=== PATIENT | female | born 1980 ===

== ENCOUNTER 2017-06-30 17:39 | Inpatient (IN) | payer MEDICAID ==
[2017-06-30 18:21] VITALS: BMI 30.2
[2017-06-30] MEDS ORDERED: Penicillin G 5 Million Unit Vial IVPB ONE (18:21)
[2017-06-30] MEDS ORDERED: Oxytocin 30 UNIT 30 UNITS/500 ML BAG IV PRN (18:21)
[2017-06-30] MEDS ORDERED: Lactated Ringer's 1,000 ML IV SCH ×2 (18:30→20:30)
[2017-06-30 18:33] LABS: BASO % 0.1 % (0.0-2.0); EOS # 0.1 K/uL (0.0-0.7); EOS % 0.9 % (0.0-4.0); HEMATOCRIT 35.1 % (34.0-47.0); LYMPH # 2.1 K/uL (1.0-4.3); LYMPH % 19.9 % (20.0-40.0); MEAN CELL VOLUME 85.8 fL (81.0-99.0); MEAN CORPUSCULAR HEMOGLOBIN 29.3 pg (27.0-31.0); MEAN CORPUSCULAR HGB CONC 34.2 g/dL (33.0-37.0); MEAN PLATELET VOLUME 8.8 fL (7.2-11.7); MONO # 0.7 K/uL (0.0-0.8); MONO % 6.5 % (0.0-10.0); RED CELL DISTRIBUTION WIDTH 14.4 % (11.5-14.5); WHITE BLOOD COUNT 10.6 K/uL (4.8-10.8)
[2017-06-30 18:40] LABS: RBC URINE 4 /hpf (0-3); URINE BACTERIA MANY (<OCC); URINE BILIRUBIN NEGATIVE (NEGATIVE); URINE BLOOD 1+ (NEGATIVE); URINE COLOR Yellow (YELLOW); URINE GLUCOSE (UA) NORMAL (Normal); URINE KETONE NEGATIVE (NEGATIVE); URINE LEUKOCYTE ESTERASE 3+ Leu/uL (Negative); URINE PROTEIN NEGATIVE (NEGATIVE); URINE UROBILINOGEN NORMAL mg/dL (0.2-1.0); WBC URINE 13 /hpf (0-5)
[2017-06-30 18:43] LABS: ALB/GLOB RATIO 0.9 (1.0-2.1); ALKALINE PHOSPHATASE 173 U/L (38-126); ALT/SGPT 24 U/L (9-52); AST/SGOT 17 U/L (14-36); BILIRUBIN,TOTAL 0.3 mg/dL (0.2-1.3); BLOOD UREA NITROGEN 6 mg/dL (7-17); CALCIUM 9.4 mg/dl (8.6-10.4); CARBON DIOXIDE 21 mmol/L (22-30); CHLORIDE 104 mmol/L (98-107); GFR AFRICAN-AMERICAN > 60; GLUCOSE,RANDOM 79 mg/dL (65-105); POTASSIUM 3.6 mmol/L (3.6-5.2); SODIUM 137 mmol/L (132-148); TOTAL PROTEIN 6.9 g/dL (6.3-8.3)
--- NOTE | 2017-06-30 18:52 | OBHP ---
Datetime: 06/30/2017 18:27 IP Adm Impression: Term, intrauterine ; Active labor; Intact Membranes IP Admit Plan: Admit to unit; Initiate labor protocol; Initiate labor augmentation protocol Admit Comment, IP Provider: 37 y.o. , LMP unsure, LISA 07/09/17, EGA 38w 5d by patient, c/o co ntractions, onset 0200 hours; now pain scale 8/10 and coming every 8 minutes. (+) AFM; denies ANDRAEFKrystle. Pernatal care: [facility], elba escalera GBS (+); no other issues. Next appointment 07/01/17. P OB: x 4. All approx 7lb; First three born in [place]; last one at [facility]. 1995 male ; 1999, 2007, 2012,all females. No complications. 2016, Spont ab at 2 months, with D_C, [facility], [facility]. 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 x 8 years; together x 12. Lives with iam sheehan and 2 younger daughters. Unemployed Fam Hx: Mother alive 57 y.o. HTN. Father 2012, age 58 - MVA. Mat aunt colon ca ncer. P.E.: as above. WD in mild discomfort with ocntractions. Awake, alert, oriented to time, person a nd place. at her bedside Assessment: 37 y.o. P4014, 38w 5d, active labor. GBS (+). Category 1 tracing. D/W patient, augm entation with pitocin. Patient will consider epidrual. Clinically stable. Plan: 1) Admit 2) NPO 3) IVFs 4) Continuous EFM 5) Admission labs, including labs 6) Pitocin 7) Penicillin 8) Anticipate vaginal delivery Pelvic Type - PN: Adequate Extremities - PN: Normal Abdomen - PN: Normal Back - PN: Normal Breast - PN: Not Done Lungs - PN: Normal Heart - PN: Normal Thyroid - PN: Not Done Neurologic - PN: Normal HEENT - PN: Normal General - PN: Normal Weight - Estimated: 3292 Presentation-Admit: Vertex FHR - Baseline A Provider: 140 Membranes, Provider: Intact Contraction Comments Provider: 6-8 Comments, ACOG Physical Exam: Abdomen: Gravid. Firm with contractions. fundal height 37 cm All other systems reviewed and are negative Gestation - Est Wks by US: 38w 5d Vital Signs Provider: Reviewed; Within Normal Limits IP Indication for Induction: Not Applicable IP Chief Complaint: Uterine contractions NICHD Variability Prov Fetus A: Moderate 6-25bpm NICHD Accel Fetus A IP Provider: 15X15 FHR Category Provider Fetus A: Category I NICHD Decel Fetus A IP Provider: None Dilatation, Provider: 4 Effacement, Provider: 70 Station, Provider: -2 Genitourinary Exam: Normal DTRs - PN: Not Done
--- NOTE | 2017-06-30 19:26 | OBPN ---
Datetime: 06/30/2017 19:21 IP Progress Impression: Normal progression of labor IP Progress Plan: Continue present management; Anticipate Vaginal Delivery Membranes, Provider: Intact Contraction Comments Provider: 1-2 FHR - Baseline A Provider: 140 Gestation - Est Wks by US: 38w 5d Presentation-Admit: Vertex IP Progress Note Comment: Patient c/o vaginal pressure; also, interested in epidural Cervical exam - as above. Assessment: 37 y.o. P4014, 38w 5d, approaching end of stage 1 of labor. GBS (+) - S/P penicillin x 1 dose. Category 1 tracing. Clinically stable. Plan: 1) Anticipate vaginal delivery NICHD Variability Prov Fetus A: Moderate 6-25bpm Dilatation, Provider: 8 Effacement, Provider: 90 Station, Provider: -1 NICHD Decel Fetus A IP Provider: None Datetime: 06/30/2017 18:27 Weight - Estimated: 3292 Vital Signs Provider: Reviewed; Within Normal Limits NICHD Accel Fetus A IP Provider: 15X15 FHR Category Provider Fetus A: Category I
[2017-06-30] MEDS ORDERED: Lidocaine 2% Inj (20ml) ONE (19:57)
[2017-06-30] MEDS ORDERED: Oxycodone/Acetaminophen 5/325 mg Tab PO PRN ×2 (20:19)
--- NOTE | 2017-06-30 20:26 | OBDS ---
DELIVERY PERSONNEL Nurse Avionics Mechanic Certified: N/A Delivery Doctor: Bang Virk MD Scrub Nurse: N/A Veneer Gluer: Whit Farrell RN Anesthesiologist: N/A [employer] Haul Youth Supervisor: N/A Resident: N/A MATERNAL INFORMATION Delivery Anesthesia: None Estimated Blood Loss (ml): 150 Placenta Cultured: No Maternal Complications: None Provider Comments: Uncomplicated vaginal delivery, live female . CURTIS, loose nuchal cord x 1 ea sily reduced over head. Umbilical cord doubly clamped and cut; infant placed on mother's abdomen. Inf ant's weight 6lb 3oz, 's 9/9. Spontaneous delivery of placenta - grossly intact, 3 vessel cord. Cervix, vagina, perineum inspected - laceration as above. Repaired Infant, mother and father bonding; mother and in stable condition. LABOR SUMMARY EDC: 07/09/2017 00:00 No. Babies in Womb: 1 Attempted: No Labor Anesthesia: None LABOR INFORMATION Reason for Induction: Not Applicable Onset of Labor: 06/30/2017 02:00 Complete Dilatation: 06/30/2017 19:42 Oxytocin: N/A Group B Beta Strep: Positive Antibiotics # of Doses: 1 Antibiotics Time of Last Dose: 18.30 PM Steroids Given: None Reason Steroids Not Administered: Not Applicable MEMBRANES Membranes Rupture Method: Artificial Rupture of Membranes: 06/30/2017 19:42 Length of Rupture (hrs): 0.13 Amniotic Fluid Color: Clear Amniotic Fluid Amount: Scant Amniotic Fluid Odor: Normal STAGES OF LABOR Stage 1 hrs: 17 Stage 1 min: 42 Stage 2 hrs: 0 Stage 2 min: 8 Stage 3 hrs: 0 Stage 3 min: 14 Total Time in Labor hrs: 18 Total Time in Labor min: 4 VAGINAL DELIVERY Episiotomy: None Laceration Extension: First Degree Laceration Type: Perineal Laceration Repair: Yes WITH 3/O CHROMIC Laceration Repair Note: 3-0 chromic, routine fasihon. Hemostasis assured. Patient tolerated procedure well Initial Vag Sponge Count: 10 Final Vag Sponge Count: 10 Initial Vag Sharps Count: 0 Final Vag Sharps Count: 1 Sponge Count Correct: Yes Sharps Count Correct: Yes Count Comment: Correct BABY A INFORMATION Infant Delivery Date/Time: 06/30/2017 19:50 Method of Delivery: Vaginal Born in Route : No : N/A Forceps: N/A Vacuum Extraction: N/A Shoulder Dystocia : No SHOULDER DYSTOCIA BABY A Infant Delivery Date/Time: 06/30/2017 19:50 PRESENTATION/POSITION BABY A Presentation: Cephalic Cephalic Presentation: Vertex Vertex Position: Left Occipital Anterior Breech Presentation: N/A PLACENTA INFORMATION BABY A Placenta Delivery Time : 06/30/2017 20:04 Placenta Method of Delivery: Spontaneous Placenta Status: Delivered SCORES BABY A Heart Rate 1 min: >100 bpm Resp Effort 1 min: Good Cry Reflex Irritability 1 min: Cough or Sneeze or Pulls Away Muscle Tone 1 min: Active Motion Color 1 min: Body [place], Extremities Blue Resuscitation Effort 1 min: Tactile Stimulation SCORE 1 MIN: 9 Heart Rate 5 min: >100 bpm Resp Effort 5 min: Good Cry Reflex Irritability 5 min: Cough or Sneeze or Pulls Away Muscle Tone 5 min: Active Motion Color 5 min: Body [place], Extremities Blue SCORE 5 MIN: 9 INFANT INFORMATION BABY A Gestational Age at Delivery: 38.6 Gestational Status: Term Outcome : Liveborn Infant Condition : Stable Sex: Female IDENTIFICATION/MEDS BABY A ID Band Number: [id number] ID Band Location: Left Leg; Left Arm Sensor Applied: Yes Sensor Number: [id number] Sensor Location : Cord Clamp WEIGHT/LENGTH BABY A Birthweight (gms): 2810 Infant Weight (lb): 6 Weight (oz): 3 Infant Length Inches: 18.00 Infant Length cms: 45.7 CORD INFORMATION BABY A No. Cord Vessels: 3 Nuchal Cord : Around Neck x1, Loose Cord Blood Taken: Yes Infant Suction: Mouth ASSESSMENT BABY A Infant Complications: None Physical Findings at Delivery: Within Normal Limits Respirations: Appears Normal Transferred To: Nursery
[2017-06-30] MEDS ORDERED: Penicillin G Potassium 2.5 MU in Dextrose 5% In Water 50 ML IV SCH (22:20)
[2017-07-01] MEDS: Benzocaine/Menthol 20%-0.5% Topical Spray (60 ml) TOP SCH
[2017-07-01 08:11] LABS: HEMATOCRIT 34.3 % (34.0-47.0); MEAN CELL VOLUME 87.2 fL (81.0-99.0); MEAN CORPUSCULAR HEMOGLOBIN 28.7 pg (27.0-31.0); MEAN CORPUSCULAR HGB CONC 32.8 g/dL (33.0-37.0); MEAN PLATELET VOLUME 9.1 fL (7.2-11.7); RED CELL DISTRIBUTION WIDTH 14.5 % (11.5-14.5); WHITE BLOOD COUNT 15.3 K/uL (4.8-10.8)
[2017-07-01] MEDS: Multiple Vitamins Tab PO SCH (10:55)
--- NOTE | 2017-07-01 11:16 | OBPPN ---
Datetime: 07/01/2017 07:16 PP Pain Prov: Within normal limits PP Nausea Prov: Denies PP Flatus Prov: No PP BM Prov: No PP Impression Prov: Normal progression PP Plan Prov: Continue present management PP Progress Note Prov: Patient seen and examined at bedside. Patient is doing well, pain is controll ed. Patient is ambulating and tolerating diet. Lochia is moderate. Urinating without difficulty. Stacy st and bottle feeding. Denies passing flatus or BM. Denies headaches, dizziness, cp, palpitations, so b, urinary symptoms. VS: 111/67 75 97.4 Gen: AAOx3 CV: RRR Lungs: CTA B/L Abd: soft, appropriately tender, fundus firm below umbilicus Ext: No clubbing, cyanosis, edema; no calf tenderness Labs: 10.6>12.0/35.1<235 F/U AM CBC A positive Rubella unk A/P: 37 yo at 38.5 wks s/p with first degree perineal PPD#1 1. stable, afebrile 2. pain control - motrin and tylenol prn 3. encourage ambulation and hydration 4. f/u am cbc, rubella, RPR 5. continue routine pp care 6. anticipate d/c home tomorrow 7. plan d/w attending dr madera agrees with plan Vital Signs Provider PP: Reviewed
[2017-07-01 16:46] LABS: RAPID PLASMA REAGIN NONREACTIVE (NONREACTIVE)
[2017-07-02] MEDS: Benzocaine/Menthol 20%-0.5% Topical Spray (60 ml) TOP SCH (06:08)
[2017-07-02] MEDS ORDERED: Measles, Mumps, and Rubella 0.5 ML VIAL SC ONE (07:23)
--- NOTE | 2017-07-02 08:24 | OBDCSUM ---
Datetime: 07/02/2017 07:25 Discharged to, Provider: Home Follow up at, Provider: Clinic Disch Instr Activity: Normal activity; May Shower Disch Instr Diet: Regular Discharge Instructions, Provider: Routine instructions given Discharge Diagnosis, Provider: Term Delivered Discharge Time: 07/02/2017 08:21 Follow up in weeks, Provider: 6 weeks Disch Referrals: None Disch Activity Restrictions: No sexual activity; Nothing in vagina - [place], tampons, douche Discharge Comment, Provider: Pelvic rest x 6 weeks Tylenol/motrin prn pain Discharge Diagnosis Prov Other: s/p vaginal delivery Contraception after Delivery: Undecided
--- NOTE | 2017-07-02 08:24 | OBPPN ---
Datetime: 07/02/2017 07:16 PP Pain Prov: Within normal limits PP Nausea Prov: Denies PP Flatus Prov: Yes PP BM Prov: No PP Impression Prov: Normal progression PP Plan Prov: Continue present management; Discharge PP Progress Note Prov: Patient seen and examined at bedside. Patient is doing well, pain is controll ed. Ambulating and tolerating diet. Lochia is mild. Urinating without difficulty. Patient is passing flatus, denies BM. Denies headaches, dizziness, cp, palpitations, sob, urinary symptoms. VS: BP 113/75 HR 78 Temp 97.0 Gen: AAOx3, NAD CV: RRR Lungs: CTA B/L Abd: soft, appropriately tender, fundus firm below umbilicus Ext: no clubbing, cyanosis, edema; no calf tenderness Labs: 10.6>12.0/35.1<235 15.3>11.3/34.3<195 A positive Rubella Equivocal A/P: 37 yo at 38.5 wks s/p with first degree perineal PPD#2 1. Stable, afebrile 2. Pain control- motrin and tylenol prn 3. Encourage ambulation and hydration 4. Rubella equivocal - MMR ordered 5. Continue routine care 6. Anticipate D/C home - pelvic rest x 6 weeks, motrin/tylenol prn, f/u with clinic in 6 weeks 7. Plan d/w attending Rohini Oretga DO, PGY-1 Patient examined.Agree with harris mason. assessment and plan IP PP Procedures: Rubella IP PP Procedures Comments: Rubella equivocal - MMR prior to discharge Vital Signs Provider PP: Reviewed; Within Normal Limits
[2017-07-02] MEDS: Multiple Vitamins Tab PO SCH (09:41)
[2017-07-03 01:38] VITALS: BP 105/73; PULSE 98; RESP 18; TEMP 96.8; O2SAT 98
== END 2017-07-02 20:30 | disposition home or self-care (01) | DRG 373 ==
LOC: C.EROB 17:39 → C.4D 18:03 → C.4M 22:05
PROVIDERS: ADMIT Obstetrics & Gynecology; ATTEND Obstetrics & Gynecology
PROC: 10E0XZZ Delivery of Products of Conception, External Approach (ICD-10-PCS; principal; 2017-06-30)
PROC: 0HQ9XZZ Repair Perineum Skin, External Approach (ICD-10-PCS; 2017-06-30)
DX: O69.81X0 Labor and delivery complicated by cord around neck, without compression, not applicable or unspecified (principal); O99.824 Streptococcus B carrier state complicating childbirth; O70.0 First degree perineal laceration during delivery; Z3A.38 38 weeks gestation of pregnancy; Z37.0 Single live birth

== ENCOUNTER 2018-01-20 17:55 | Emergency (ER) | payer SELFPAY ==
[2018-01-20 17:55] VITALS: BMI 30.2
[2018-01-20 18:07] VITALS: BP 125/79; PULSE 81; RESP 20; TEMP 98.1; O2SAT 98
--- NOTE | 2018-01-20 20:01 | C.PDOC ---
History Of Present Illness 37 y/ o female presents to the ED complaining of sore throat, fever, and headache, since yesterday. Symptoms associated with painful swallowing. No URI symptoms. No sick contacts. Time Seen by Provider: 01/20/18 19:18 Chief Complaint (Nursing): Flu-like Symptoms History Per: Patient History/Exam Limitations: no limitations Onset/Duration Of Symptoms: Days (x2) Current Symptoms Are (Timing): Still Present Past Medical History Reviewed: Historical Data, Nursing Documentation, Vital Signs Vital Signs: Last Vital Signs Temp 98.1 F 01/20/18 18:04 Pulse 81 01/20/18 18:04 Resp 20 01/20/18 18:04 BP 125/79 01/20/18 18:04 Pulse Ox 98 01/20/18 20:03 - Medical History PMH: No Chronic Diseases Denies: Depression, Diabetes, HTN Surgical History: No Surg Hx - [facility] Procedures DELIVERY OF PRODUCTS OF CONCEPTION, EXTERNAL APPROACH (06/30/17) REPAIR OB LACERATION NEC (07/21/13) REPAIR PERINEUM SKIN, EXTERNAL APPROACH (06/30/17) Family History: States: No Known Family Hx - Social History Hx Alcohol Use: No Hx Substance Use: No - Immunization History Hx Tetanus Toxoid Vaccination: No Hx Influenza Vaccination: No Hx Pneumococcal Vaccination: No Review Of Systems Except As Marked, All Systems Reviewed And Found Negative. Constitutional: Positive for: Fever ENT: Positive for: Throat Pain, Other (Painful swallowing). Negative for: Nose Discharge Respiratory: Negative for: Cough, Shortness of Breath Neurological: Positive for: Headache Physical Exam - Physical Exam Appears: Non-toxic, No Acute Distress Skin: Normal Color, Warm, Dry Head: Atraumatic, Normacephalic Eye(s): bilateral: Normal Inspection, PERRL, EOMI Ear(s): Bilateral: Normal Nose: Normal Oral Mucosa: Moist Throat: No Erythema, Other (Enlarged tonsils with exudates, uvula midline) Neck: Normal ROM, Trachea Midline, Supple Lymphatic: Adenopathy (+ tender submandibular adenopathy) Cardiovascular: Rhythm Regular, No Murmur Respiratory: Normal Breath Sounds, No Accessory Muscle Use, No Rhonchi, No Wheezing Neurological/Psych: Oriented x3, Normal Speech ED Course And Treatment O2 Sat by Pulse Oximetry: 98 (RA) Pulse Ox Interpretation: Normal Progress Note: Patient given Toradol IM, 1 dose of penicillin, and Lidocaine PO. Patient is in no resp distress , temp has improved and is medically stable for discharge home. Advised to f/u with primary doctor/the clinic in 1-2 days Reassessment Condition: Improved Disposition - Disposition Referrals: [facility] at [facility] [Outside] Disposition: HOME/ ROUTINE Disposition Time: 19:45 Condition: STABLE Additional Instructions: Please follow up with PMD or in clinic Bev las medicinas Increase PO fluids ( Bev liquido)/ Use CHOLORASEPTIC Return to ER if worse Prescriptions: Ibuprofen [Motrin] 600 mg PO Q6H #30 tab Penicillin VK [Penicillin VK Tab] 500 mg PO Q6H #28 tab Instructions: Sore Throat, Adult (DC) Forms: [employer] (Portuguese) Print Language: MONTSERRATIAN - Clinical Impression Clinical Impression: Pharyngitis - PA / TRANSFER DRIVER / Resident Statement MD/DO has reviewed & agrees with the documentation as recorded. - Scribe Statement The provider has reviewed the documentation as recorded by the Scribe (Sophia Irvin) All medical record entries made by the Scribe were at my direction and personally dictated by me. I have reviewed the chart and agree that the record accurately reflects my personal performance of the history, physical exam, medical decision making, and the department course for this patient. I have also personally directed, reviewed, and agree with the discharge instructions and disposition.
--- NOTE | 2018-01-20 20:05 | C.PDOC ---
Time Seen by Provider: 01/20/18 19:18 Chief Complaint (Nursing): Flu-like Symptoms Past Medical History Vital Signs: Last Vital Signs Temp 98.1 F 01/20/18 18:04 Pulse 81 01/20/18 18:04 Resp 20 01/20/18 18:04 BP 125/79 01/20/18 18:04 Pulse Ox 98 01/20/18 18:04 - Medical History PMH: Denies: Depression, Diabetes, HTN - [facility] Procedures DELIVERY OF PRODUCTS OF CONCEPTION, EXTERNAL APPROACH (06/30/17) REPAIR OB LACERATION NEC (07/21/13) REPAIR PERINEUM SKIN, EXTERNAL APPROACH (06/30/17) - Social History Hx Alcohol Use: No Hx Substance Use: No - Immunization History Hx Tetanus Toxoid Vaccination: No Hx Influenza Vaccination: No Hx Pneumococcal Vaccination: No ED Course And Treatment O2 Sat by Pulse Oximetry: 98 Disposition Counseled Patient/Family Regarding: Diagnosis, Need For Followup, Rx Given - Disposition Referrals: [facility] [Outside] Disposition: HOME/ ROUTINE Disposition Time: 20:01 Condition: STABLE Additional Instructions: Please follow up with PMD or in clinic Bev las medicinas Increase PO fluids ( Bev liquido)/ Use CHOLORASEPTIC Return to ER if worse Prescriptions: Ibuprofen [Motrin] 600 mg PO Q6H #30 tab Penicillin VK [Penicillin VK Tab] 500 mg PO Q6H #28 tab Instructions: Sore Throat, Adult (DC) Forms: [employer] (Khmer) Print Language: ARMENIAN - Clinical Impression Clinical Impression: Pharyngitis
== END 2018-01-20 20:09 | disposition home or self-care (01) ==
LOC: C.ER 17:55
DX: J02.9 Acute pharyngitis, unspecified (principal)
CPT/HCPCS: 96372; 99284; J1885